=== PATIENT | male | born 1990 | race Caucasian/White ===

== ENCOUNTER 2018-12-25 11:05 | Emergency (ER) | payer SELFPAY ==
[~2018-12-25] VITALS: Ht 188 cm; Wt 104.4 kg
[2018-12-25] MEDS ORDERED: AMOXICILLIN875 MG PO (11:39)
[2018-12-25] MEDS ORDERED: GENTAMICIN0.3 % OU (11:39)
[2018-12-25 11:55] VITALS: BP 129/86
== END 2018-12-25 11:55 | disposition home or self-care (01) | DRG 153 ==
LOC: ED 11:05
DX: J02.9 Acute pharyngitis, unspecified (principal); R50.9 Fever, unspecified; H10.31 Unspecified acute conjunctivitis, right eye

== ENCOUNTER 2019-03-06 11:10 | Emergency (ER) | payer OTHER ==
[~2019-03-06] VITALS: Ht 188 cm; Wt 104.0 kg
[~2019-03-06 11:10] MED LIST: AMOXICILLIN875 MG PO; GENTAMICIN0.3 % OU
[2019-03-06] MEDS ORDERED: FLEXERIL PO (11:40)
[2019-03-06 12:08] VITALS: BP 143/83
== END 2019-03-06 12:08 | disposition home or self-care (01) ==
LOC: ED 11:10
DX: S39.012A Strain of muscle, fascia and tendon of lower back, initial encounter (principal); M62.830 Muscle spasm of back; X50.0XXA Overexertion from strenuous movement or load, initial encounter; Y93.89 Activity, other specified

== ENCOUNTER 2022-06-16 10:58 | Emergency (ER) | payer MEDICAID ==
[~2022-06-16] VITALS: Ht 188 cm; Wt 104.5 kg
[~2022-06-16 10:58] MED LIST changes: +FLEXERIL PO
[2022-06-16 11:55] VITALS: BP 135/90
[2022-06-16] MEDS ORDERED: AMOX/K CLAV875 M1 PO (11:55)
== END 2022-06-16 13:06 | disposition home or self-care (01) ==
LOC: ED 10:58
DX: J02.0 Streptococcal pharyngitis (principal); J45.909 Unspecified asthma, uncomplicated; Z20.822 Contact with and (suspected) exposure to COVID-19
CPT/HCPCS: J1100

== ENCOUNTER 2022-08-04 18:26 | Emergency (ER) | payer MEDICAID ==
[~2022-08-04] VITALS: Ht 188 cm; Wt 109.0 kg
[~2022-08-04 18:26] MED LIST changes: +AMOX/K CLAV875 M1 PO
[2022-08-04 18:39] VITALS: BP 131/92
[2022-08-04] MEDS ORDERED: NAPROXEN500 MG PO (18:40)
[2022-08-04] MEDS ORDERED: PENICILLN VK500 MG PO (18:40)
== END 2022-08-04 19:00 | disposition home or self-care (01) ==
LOC: ED 18:26
DX: K04.7 Periapical abscess without sinus (principal); K02.9 Dental caries, unspecified; J45.909 Unspecified asthma, uncomplicated

== ENCOUNTER 2022-08-28 15:34 | Emergency (ER) | payer MEDICAID ==
[~2022-08-28] VITALS: Ht 188 cm; Wt 95.0 kg
[~2022-08-28 15:34] MED LIST changes: +NAPROXEN500 MG PO; +PENICILLN VK500 MG PO
[2022-08-28] MEDS ORDERED: CLINDAMYCIN300 M1 PO (16:08)
[2022-08-28 16:20] VITALS: BP 133/94
== END 2022-08-28 16:25 | disposition home or self-care (01) ==
LOC: ED 15:34
DX: K08.89 Other specified disorders of teeth and supporting structures (principal); J45.909 Unspecified asthma, uncomplicated

== ENCOUNTER 2022-12-15 16:55 | Emergency (ER) | payer MEDICAID ==
[~2022-12-15] VITALS: Ht 188 cm; Wt 102.0 kg
[~2022-12-15 16:55] MED LIST changes: +CLINDAMYCIN300 M1 PO
[2022-12-15] MEDS ORDERED: CLINDAMYCIN300 M1 PO (17:23)
[2022-12-15 17:57] VITALS: BP 128/80
== END 2022-12-15 18:01 | disposition home or self-care (01) ==
LOC: ED 16:55
DX: K08.89 Other specified disorders of teeth and supporting structures (principal); J45.909 Unspecified asthma, uncomplicated

== ENCOUNTER 2022-12-22 11:30 | Emergency (ER) | payer MEDICAID ==
[~2022-12-22] VITALS: Ht 188 cm; Wt 108.8 kg
[2022-12-22] MEDS ORDERED: TAM75CAP PO ×2 (14:34→14:50)
[2022-12-22 14:48] VITALS: BP 121/84
== END 2022-12-22 15:01 | disposition home or self-care (01) ==
LOC: ED 11:30
DX: J11.1 Influenza due to unidentified influenza virus with other respiratory manifestations (principal); J45.909 Unspecified asthma, uncomplicated; Z20.822 Contact with and (suspected) exposure to COVID-19

== ENCOUNTER 2023-05-03 12:04 | Emergency (ER) | payer OTHER, MEDICAID ==
[2023-05-03] VITALS (9 sets, daily range): BP systolic 106–135; BP diastolic 70–90
[~2023-05-03] VITALS: Ht 188 cm; Wt 110.2 kg
[~2023-05-03 12:04] MED LIST changes: +TAM75CAP PO
[2023-05-03] MEDS ORDERED: NAPROXEN500 MG PO (14:00)
== END 2023-05-03 14:17 | disposition home or self-care (01) | DRG 914 ==
LOC: ED 12:04
DX: S09.90XA Unspecified injury of head, initial encounter (principal); J45.909 Unspecified asthma, uncomplicated; W01.0XXA Fall on same level from slipping, tripping and stumbling without subsequent striking against object, initial encounter; Y93.89 Activity, other specified; Y92.89 Other specified places as the place of occurrence of the external cause; Y99.0 Civilian activity done for income or pay